=== PATIENT | female | born 1950 | race Caucasian/White ===

== ENCOUNTER → 2017-01-01 | Outpatient (CLI) | payer OTHER, MEDICARE ==
[~2017-01-01] MED LIST: ADVAIR 1001 DISK W/D; ALBUTEROL17 GM; ASPIRIN; BACLOFEN10 MG; BACLOFEN10 MG PO; CRESTOR; DITROPAN; FISH OIL 1,0001 CAP; FORTAMET; GLUCOTROL10 MG PO; LYRICA PO; METFORMIN PO; MOBIC PO; PREDNISONE; PREMARIN; SPIRIVA18 MCG; ZOFRAN PO
--- NOTE | ~2017-01-01 | CT57 ---
[facility] A Service of [facility] & [facility] RADIOLOGY TEXT RESULTS PATIENT: SEAN MOCTEZUMA LOCATION: [facility]AT : 52 UNIT #: [id number] AGE: [address]: Cayla Olivia MD SEX: F ORDER DR: [id number] [facility] [address] [place], [place] [address] [id number] O MR#: [id number] Acc #: [id number] NAME: SEAN MOCTEZUMA : 1950 SEX: F STUDY DATE/TIME: 01/01/2017 13:47 UNIT: [facility] ROOM: STUDY DESCRIPTION: CT Chest Wo Cont Attending Physician: Cayla Olivia M.D. Referring Physician: Cayla Olivia M.D. Ordering Physician: Cayla Olivia M.D. Primary Care Physician: Cayla Olivia M.D. MEDICAL IMAGING REPORT This report is preliminary unless electronic signature is present EXAM High-resolution CT chest without contrast DATE: 01/01/2017 HISTORY Cough for 6 years. COPD. Diabetes. COMPARISON CTA chest PE protocol 10/05/2010. This CT exam was performed with one or more of the following radiation dose reduction techniques: automatic exposure control, adjustment of mA and/or kV according to patient size, and iterative reconstruction. PROCEDURE 1 mm axial images were obtained at 10 mm increments through the chest without contrast per high-resolution protocol. Prone imaging was performed in the lung bases. 5 mm helical phase images were also acquired to account for motion degradation on high-resolution portion of the exam. Expiratory phase high-resolution imaging was obtained at the level of the arch, carotid and bases. The level arch, chronic basis. FINDINGS Mild interstitial thickening is seen, peripherally in the upper lobes, greatest in the apices. Mild centrilobular emphysematous changes are present. There is no evidence of honeycomb fibrosis. No consolidative changes are identified. Benign calcified granuloma is demonstrated anteromedially in the right upper lobe. Lesser degree of interstitial thickening is also demonstrated within the left upper lobe more inferiorly and anteromedially. No abnormal bronchial wall thickening or bronchiectasis is identified. STS. [facility] A Service of [facility] & [facility] RADIOLOGY TEXT RESULTS PATIENT: SEAN MOCTEZUMA LOCATION: [facility] : 52 UNIT #: [id number] AGE: [address]: Cayla Olivia MD SEX: F ORDER DR: Heart size is within normal limits. Mild left anterior descending coronary artery calcifications are present. Densely calcified lymph node is seen within the right paratracheal region. No thoracic aneurysm or aortic dissection is seen. Imaged thyroid gland is normal. Included upper abdominal organs are within normal limits. There is no evidence of air trapping on expiratory phase or prone imaging. IMPRESSION 1. Mild interstitial fibrotic changes in the upper lobes, greatest in the apices, without ankur honeycombing fibrosis. 2. Mild centrilobular emphysema. 3. No acute airspace disease is appreciated. 4. Mild left anterior descending coronary calcification. Correlate with cardiac history. 5. Benign calcified granulomatous changes. Dictated by... Esperanza Hawley M.D. THIS IS AN ELECTRONICALLY VERIFIED REPORT Esperanza Hawley M.D. at 01/07/2017 4:12 PM ALEXANDRE/ronal TD: 01/02/2017 05:36 JOB #: [id number] MEDICAL IMAGING REPORT Page 1 of 1 COPY
== END | disposition home or self-care (01) ==
LOC: CCAT 13:17
DX: J41.0 Simple chronic bronchitis (principal); R93.8 Abnormal findings on diagnostic imaging of other specified body structures; J43.2 Centrilobular emphysema; I25.10 Atherosclerotic heart disease of native coronary artery without angina pectoris; Z87.891 Personal history of nicotine dependence
CPT/HCPCS: 71250